=== PATIENT | female | born 1930 | race Caucasian/White ===

== ENCOUNTER → 2016-05-18 | Outpatient (CLI) | payer OTHER ==
[2016-05-18 19:03] LABS: BASO % 0.4 %; BASO ABS # 0.02 K/uL (0-0.2); COMPLETE YES; EOS % 1.3 %; HEMATOCRIT 36.3 % (37-47); IG% 0.2 %; LYMPH ABS # 1.08 K/uL (1.2-3.4); MEAN CELL VOLUME 102.8 fL (80-100); MEAN CORPUSCULAR HEMOGLOBIN 30.6 pg (25-34); MEAN CORPUSCULAR HGB CONC 29.8 g/dl (32-36); MEAN PLATELET VOLUME 10.8 fL (7.4-10.4); MONO % 8.3 %; NEUT % 66.8 %; PLATELET COUNT 173 K/uL (130-400); RED BLOOD COUNT 3.53 M/uL (4.2-5.4)
[2016-05-18 20:41] LABS: ALT/SGPT 12 U/L (12-78); AST/SGOT 12 U/L (15-37); BLOOD UREA NITROGEN 26 mg/dl (7-18); BUN/CREATININE RATIO 21.3 (10-20); CARBON DIOXIDE 37 mmol/L (21-32); CHLORIDE 104 mmol/L (98-107); GLUCOSE 85 mg/dl (70-99); POTASSIUM 5.3 mmol/L (3.5-5.1); SODIUM 145 mmol/L (136-145)
[2016-05-18 20:43] LABS: ALKALINE PHOSPHATASE 51 U/L (45-117)
== END | disposition home or self-care (01) ==
LOC: C.LABSPEC 16:00
PROVIDERS: ATTEND Family Medicine
DX: R41.82 Altered mental status, unspecified (principal)

== ENCOUNTER → 2016-07-17 | Outpatient (CLI) | payer OTHER | END | disposition home or self-care (01) | LOC: C.LABSPEC 13:58 | PROVIDERS: ATTEND Family Medicine | DX: R41.82 Altered mental status, unspecified (principal); D72.829 Elevated white blood cell count, unspecified ==